=== PATIENT | male | born 1965 | race Caucasian/White ===

== ENCOUNTER 2022-04-01 20:31 | Emergency (ER) | payer OTHER, SELFPAY ==
[2022-04-01 20:54] VITALS: BP 111/73; PULSE 79; RESP 18; TEMP 36.6; O2SAT 98
[2022-04-01] MEDS: ACETAMINOPHEN 325 MG TABLET 650 MG PO (21:59)
[2022-04-01] MEDS: TETANUS,DIPHTHERIA,AC PERTUSSIS ADULT 0.5 ML (ADACEL) IM (22:00)
[2022-04-01] MEDS: LIDOCAINE HCL 2% PF INJ 5 ML VIAL 1 ML INFILTRATE (22:01)
[2022-04-01 23:28] VITALS: BP 130/74; PULSE 85; RESP 20; TEMP 36.7; O2SAT 95
--- NOTE | 2022-04-01 23:31 | ED.WOUNDLAC ---
HPI - Wound/Laceration General Chief Complaint: Wound/Laceration Stated Complaint: busted lip Time Seen by Provider: 04/01/22 20:33 Source: patient and RN notes reviewed Mode of arrival: ambulatory Limitations: no limitations History of Present Illness HPI narrative: lip laceration Onset (ago): hour(s) (1) Location: face Place: home Context: accidental Associated symptoms: pain Related Data Home Medications Medication Instructions Recorded Confirmed citalopram 40 mg tablet 1 tablet PO DAILY 04/01/22 04/11/22 cyclobenzaprine 10 mg tablet 1 tablet PO DAILY 04/01/22 04/11/22 hydroxyzine HCl 25 mg tablet 1 tablet PO DAILY 04/01/22 04/11/22 pantoprazole 40 mg tablet,delayed 1 tablet PO DAILY 04/01/22 04/11/22 release Allergies Allergy/AdvReac Type Severity Reaction Status Date / Time acetaminophen [From Percocet] Allergy Unknown Verified 04/11/22 20:35 amoxicillin [From Augmentin] Allergy Unknown Verified 04/11/22 20:35 clavulanic acid Allergy Unknown Verified 04/11/22 20:35 [From Augmentin] oxycodone [From Percocet] Allergy Unknown Verified 04/11/22 20:35 Review of Systems Review of Systems: All systems reviewed & are unremarkable except as noted in HPI and below Constitutional: Constitutional: Reports no additional constitutional complaints Eyes: Eyes: Reports no additional eye complaints ENT: Reports system reviewed and no additional complaints, except as documented Cardiovascular: Cardiovascular: Reports no additional cardiovascular complaints Respiratory: Respiratory: Reports no additional respiratory complaints Gastrointestinal: Gastrointestinal: Reports no additional gastrointestinal complaints Musculoskeletal: Musculoskeletal: Reports no additional musculoskeletal complaints Integumentary/Breasts: Skin/Breast: Reports system reviewed and no additional complaints, except as docu Neurologic: Reports system reviewed and no additional complaints, except as documented Psychiatric: Psychiatric: Reports no additional psychiatric complaints Endocrine: Endocrine: Reports no additional endocrine complaints Hematologic/Lymphatic: Hematologic/Lymphatic: Reports no additional hematologic/lymphatic complaints Allergic/Immunologic: Allergic/Immunologic: Reports no additional allergic/immunologic complaints PMFSH Past Medical History Medical History Lip laceration Exam Const: General: healthy appearing and no acute distress Nutritional Appearance: well nourished Orientation/consciousness: patient oriented x3 Limitations: no limitations HENMT: Head: normal to inspection Ears: external ears normal, TM's normal bilaterally and EAC's normal General nose exam: Normal external nose present and Normal nares present Face and sinus: normal facial exam and sinuses nontender Mouth: Yes Normal oral and palatal mucosa present, Yes lip normal (lip laceration 1.8 cm, well approximated) and Yes moist mucous membranes Teeth and gingiva: dentition normal Throat: posterior oropharynx normal Eyes: Conjunctivae: conjunctivae normal Pupils: Equal, round and reactive pupils present EOM: EOMs intact bilaterally Neck: Neck: normal visual inspection, no lymphadenopathy and no meningeal signs Chest: Chest palpation & inspection: normal inspection of the chest Resp: Effort & Inspection: normal respiratory effort Auscultation: clear to auscultation bilaterally Cardio: Rate: regular rate Rhythm: regular rhythm GI: GI Palp: Yes Soft to palpation and No Tenderness to palpation present (GI) Auscultation: normal bowel sounds : General: Yes bladder normal to palpation and Yes no CVA tenderness Back/Spine/Pelvis: Back: no CVA tenderness Skin: General skin exam: normal color Rashes: no rashes Wounds: no wounds Neuro: General: patient oriented x3, moves all extremities, no meningeal signs, no focal motor deficits and CN's II-XI intact bilaterally Cran
== END 2022-04-01 23:39 | disposition home or self-care (01) ==
PROVIDERS: Emergency Provider Emergency Medicine; PCP Family Medicine
DX: S01.511A Laceration without foreign body of lip, initial encounter (principal)
CPT/HCPCS: 12011; 90471; 90715; 99282; A9270

== ENCOUNTER 2022-04-11 20:10 | Emergency (ER) | payer OTHER, SELFPAY ==
[2022-04-11 20:25] VITALS: BP 115/75; PULSE 54; RESP 16; TEMP 36.5; O2SAT 98
--- NOTE | 2022-04-11 20:35 | PC.NURSE ---
three sutures removed from the middle of the left lower lip. pt tolerated well. no bleeding observed.
--- NOTE | 2022-04-11 20:40 | ED.GENADULT ---
HPI - General Adult General Chief complaint: Unspecified Stated complaint: stitches removal Time Seen by Provider: 04/11/22 20:14 Source: patient and RN notes reviewed Mode of arrival: ambulatory Limitations: no limitations History of Present Illness HPI narrative: left forehead laceration Onset (ago): hour(s) (1) Location: head Radiation: non-radiation Severity: mild Severity scale (1-10): 3 Quality: aching Pain Consistency: constant Relieving factors: none Exacerbating factors: none Treatments prior to arrival: none Related Data Home Medications Medication Instructions Recorded Confirmed citalopram 40 mg tablet 1 tablet PO DAILY 04/01/22 04/11/22 cyclobenzaprine 10 mg tablet 1 tablet PO DAILY 04/01/22 04/11/22 hydroxyzine HCl 25 mg tablet 1 tablet PO DAILY 04/01/22 04/11/22 pantoprazole 40 mg tablet,delayed 1 tablet PO DAILY 04/01/22 04/11/22 release Allergies Allergy/AdvReac Type Severity Reaction Status Date / Time acetaminophen [From Percocet] Allergy Unknown Verified 04/11/22 20:35 amoxicillin [From Augmentin] Allergy Unknown Verified 04/11/22 20:35 clavulanic acid Allergy Unknown Verified 04/11/22 20:35 [From Augmentin] oxycodone [From Percocet] Allergy Unknown Verified 04/11/22 20:35 Review of Systems Review of Systems: All systems reviewed & are unremarkable except as noted in HPI and below Constitutional: Constitutional: Reports no additional constitutional complaints Eyes: Eyes: Reports no additional eye complaints ENT: Reports system reviewed and no additional complaints, except as documented Cardiovascular: Cardiovascular: Reports no additional cardiovascular complaints Respiratory: Respiratory: Reports no additional respiratory complaints Gastrointestinal: Gastrointestinal: Reports no additional gastrointestinal complaints Musculoskeletal: Musculoskeletal: Reports no additional musculoskeletal complaints Integumentary/Breasts: Skin/Breast: Reports system reviewed and no additional complaints, except as docu Neurologic: Reports system reviewed and no additional complaints, except as documented Psychiatric: Psychiatric: Reports no additional psychiatric complaints Endocrine: Endocrine: Reports no additional endocrine complaints Hematologic/Lymphatic: Hematologic/Lymphatic: Reports no additional hematologic/lymphatic complaints Allergic/Immunologic: Allergic/Immunologic: Reports no additional allergic/immunologic complaints PMFSH Past Medical History Medical History Forehead laceration Lip laceration Exam Const: General: healthy appearing, no acute distress and other (left forehead superficial 1.8 cm laceration and 0.3 cm left lip laceration) Nutritional Appearance: well nourished Orientation/consciousness: patient oriented x3 Limitations: no limitations HENMT: Head: normal to inspection Ears: external ears normal, TM's normal bilaterally and EAC's normal General nose exam: Normal external nose present and Normal nares present Face and sinus: normal facial exam and sinuses nontender Mouth: Yes Normal oral and palatal mucosa present and Yes moist mucous membranes Teeth and gingiva: dentition normal Throat: posterior oropharynx normal Eyes: Conjunctivae: conjunctivae normal Pupils: Equal, round and reactive pupils present EOM: EOMs intact bilaterally Neck: Neck: normal visual inspection, no lymphadenopathy and no meningeal signs Chest: Chest palpation & inspection: normal inspection of the chest Resp: Effort & Inspection: normal respiratory effort Auscultation: clear to auscultation bilaterally Cardio: Rate: regular rate Rhythm: regular rhythm GI: GI Palp: Yes Soft to palpation and No Tenderness to palpation present (GI) Auscultation: normal bowel sounds : General: Yes bladder normal to palpation and Yes no CVA tenderness Back/Spine/Pelvis: Back: no CVA tenderness Skin: General skin exam:
[2022-04-11 20:59] VITALS: BP 127/83; PULSE 53; RESP 16; TEMP 36.5; O2SAT 99
== END 2022-04-11 21:01 | disposition home or self-care (01) ==
PROVIDERS: Emergency Provider Emergency Medicine; PCP Family Medicine
DX: S01.81XA Laceration without foreign body of other part of head, initial encounter (principal)
CPT/HCPCS: 99281

== ENCOUNTER 2025-01-05 07:27 | Outpatient (CLI) | payer BC, SELFPAY ==
--- NOTE | ~2025-01-05 | CT_ITS ---
EXAMINATION: CT abdomen pelvis wo/w con DATE: 01/05/2025 08:11 INDICATION: Gross hematuria. TECHNIQUE: Computed tomography (CT) of the abdomen and pelvis was performed without and with intraven ous contrast using a total of 130 mL Omnipaque-350 intravenous contrast with a double-bolus technique for simultaneous opacification of the renal parenchyma and renal collecting system. Automated exposu re control and iterative reconstruction technique were employed. The dose-length product was 546.70 m Gy-cm. COMPARISON: None FINDINGS: The visualized portions of the lung bases are clear without pneumonia or pleural effusion. The heart size is normal. No pericardial effusion. The liver, gallbladder, spleen, pancreas, adrenal glands, an d right kidney are normal. There are cysts in left kidney measuring up to 13 mm. There is no urolithi asis. Right ureter is well opacified and is normal. Left ureter is well opacified and is normal. The bladder is normal. There are surgical changes of the bowel. There are no dilated loops of bowel. Ther e are no pathologically enlarged lymph nodes. There is no free intraperitoneal fluid. 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 There is mild lumbar spondylosis. IMPRESSION: 1. No etiology for hematuria. Reviewed, dictated and finalized at location B.
--- OUTSIDE RECORDS SUMMARY | 2025-01-05 07:32 | XMS_ITS | Encounter Summary ---
Author Organization [facility] Address [address] [place] [id number] Care Team Providers Care Neonatal Doctor Name Role Phone Adan Washington MD Primary Care Provider Encounter Details Date Type Department Care Team (Late st Contact Info) Description 04/04/2019 Abstract SFL CONVERSION [address] [place] [id number] , Generic Conversion, Social History Tobacco Use Types Packs/Day Years Used Date Smoking Tobacco: Never Assessed Sex and Gender Information Value Date Recorded Sex Assigned at Not on file Legal Sex Male 10:04 PM MORTICIAN HELPER Gender Identity Not on file Sexual Orientation Not on file documented as of this encounter Plan of Treatment Not on file documented as of this encounter Visit Diagnoses Not on filedocumented in this encounter Additional Health Concerns Infection Onset Date Last Indicated Resolved Time COVID-19 Rule Out 03/15/2020 03/15/2020 03/22/2020 8:47 AM CDT COVID-19 Rule Out 01/05/2023 01/05/2023 01/05/2023 1:23 PM MORTICIAN HELPER documented as of this encounter Care Teams Neonatal Doctor Relationship Specialty Start Date End Date Adan Washington MD [address] [place] [id number] PCP - General FAMILY PRACTICE 03/15/20 documented as of this encounter
--- OUTSIDE RECORDS SUMMARY | 2025-01-05 07:32 | XMS_ITS | Clinical Summary ---
Author Organization [facility] Address [address] [place] [address] Care Team Providers Care Cleat Blanker Name Role Phone Adan Washington MD Primary Care Provider Allergies Active Allergy Reactions Criticality Noted Date Comments Amoxicillin-Pot Clavulanate GI Upset Low 03/16/20 20 Pt able to take penicillin product that does not have coating on tablet. Oxycodone-Acetaminophen Vomiting Medium 03/18/2020 Medications aspirin 81 MG chewable tablet Chew 1 tablet (81 mg total) by mouth daily. Active multi vitamin/mineral s tablet Take 1 tablet by mouth daily. Active citalopram (CELEXA) 40 MG tablet Take 1 tablet (40 mg total) by mouth daily. Active cyclobenzaprine (FLEXERIL) 10 MG tablet Take 1 tablet (10 mg total) by mouth 3 (three) times daily as needed for Muscle Spasms. Active hydrOXYzine (VISTARIL) 25 MG capsule Take 1 capsule (25 mg total) by mouth 3 (three) times daily as needed for Itching. Active clotrimazole-be tamethasone (LOTRISONE) cream Apply to affected area 2 times daily on 2 3 days after rash resolves. 45 g 2 Active nystatin (MYCOSTATIN) powder Apply topically 3 (three) times daily. Apply to the affected area 3 times daily until 3 days after rash resolves. 30 g 2 Active ENULOSE 10 GM/15ML solution Take 30 mLs (20 g total) by mouth 2 (two) times daily as needed. FOR CONSTIPATION Active pantoprazole EC (PROTONIX) 40 MG tablet Take 1 tablet (40 mg total) by mouth daily. Active clotrimazole (LOTRIMIN) 1 % creamIndication s:Candidal balanitis Apply topically 2 (two) times daily. 30 g Active Active Problems No known active problems Encounters Date Type Department Care Team Description 11/03/2024 12:33 PM BOTTOM PAINTER - 11/03/2024 1:55 PM BOTTOM PAINTER Emergency [facility] [address] [address] Blaise High MD Male Gu Discharge Disposition: Home or Self Care (Routine Discharge) 11/03/2024 Travel from Last 3 Months Family History Medical History Relation Comments Cancer Father Stroke Father No Known Problems Mother Relation Status Comments Father Mother Alive Social History Tobacco Use Types Packs/Day Years Used Date Smoking Tobacco: Every Day Cigarettes 0.3 10 Smokeless Tobacco: Never Tobacco Cessation:Ready to Q uit: Not Asked; Counseling Given: Not Answered Alcohol Use Standard Drinks/Week Comments Yes 0 (1 standard drink = 0.6 oz pur e alcohol) rare Sex and Gender Information Value Date Recorded Sex Assigned at Not on file Legal Sex Male 10:04 PM BOTTOM PAINTER Gender Identity Not on file Sexual Orientation Not on file Last Filed Vital Signs Vital Sign Reading Time Taken Comments Blood Pressure 136/73 11/03/2024 2:00 PM BOTTOM PAINTER Pulse 64 11/03/2024 1:55 PM BOTTOM PAINTER Temperature 36.7 C (98 F) 11/03/2024 12:39 PM BOTTOM PAINTER Respiratory Rate 16 11/03/2024 12:39 PM BOTTOM PAINTER Oxygen Saturation 98% 11/03/2024 2:00 PM BOTTOM PAINTER Inhaled Oxygen Concentration - - Weight 66.4 kg (146 lb 5 oz) 11/03/2024 12:39 PM BOTTOM PAINTER Height 185.4 cm (6' 1 ) 11/03/2024 12:39 PM BOTTOM PAINTER Body Mass Index 19.3 11/03/2024 12:39 PM BOTTOM PAINTER Plan of Treatment Health Maintenance Due Date Last Done Comments Annual Physical 1969 Pneumococcal Vaccine: Pediatrics (0 to 5 Years) and At-Risk Patients (6 to 64 Years) (1 of 2 - PCV) 1972 Hepatitis C 1984 Hepatitis B Vaccines (1 of 3 - 19+ 3-dose series) 1985 Zoster Vaccines (1 of 2) 2016 COVID-19 Vaccine ( season) 2024 02/16/2022, 05/11/2021, 04/20/2021 Influenza Adult (#1) 2024 08/04/2019 DTaP, Tdap and Td Vaccines (3 - Td or Tdap) 04/01/2032 04/01/2022, 03/13/2018 Colorectal Cancer Screening Colonoscopy (10 Years) 12/11/2032 12/11/2022, 12/11/2022, 03/18/2020, Additional history exists Meningococcal B Vaccine Aged Out No l onger eligible based on patient's age to complete this topic Meningococcal Vaccine Aged Out No lucero yary eligible based on patient's age to complete this topic RSV Immunizations Under 20 Months Aged Out No longer eligible based on patient's age to complete this topic Procedures Procedure Name Priority Date/Time Associated Diagnosis Comments CT ABD+PEL WO CON STAT 11/03/2024 1:2 5 PM BOTTOM PAINTER HC URINALYSIS AUTO W/MICRO STAT 11/03/2024 1:17 PM BOTTOM PAINTER BASIC METABOLIC PANEL STAT 11/03/2024 1:14 PM BOTTOM PAINTER CBC W/DIFF AUTOMATED STAT 11/03/2024 1:14 PM BOTTOM PAINTER COLONOSCOPY 12/11/2022 6:46 AM BOTTOM PAINTER from Last 3 Months or Most Recently Relevant to Health Maintenance Results * CT ABD+PEL WO CON (11/03/2024 1:25 PM BOTTOM PAINTER) Anatomical Region Laterality Modality Abdomen Computed Tomogra phy 11/03/2024 1:28 PM BOTTOM PAINTER Impressions 11/03/2024 1:37 PM BOTTOM PAINTER IMPRESSION: No acute intra-abdominal or intrapelvic process identified. No source of the patient's symptoms identified. Ordered By: BLAISE HIGH Interpreted By: Stan Sousa MD, 11/03/2024 1:28 PM Narrative 11/03/2024 1:37 PM BOTTOM PAINTER [address] [place] [address] Examination: CT of the abdomen and pelvis without contrast. Exam time: 1326 hours. Clinical history: Hematuria. Penile discomfort. Normal WBC count. Prior subtotal colectomy. Comparison: 11/03/2022 (contrast-enhanced). Technique: Spiral scanning was performed through the abdomen and pelvis without contrast. Sagittal and coronal reconstructions were performed from the data set. A dose lowering technique was used for this procedure, which may include, but is not limited to, dose reduction techniques, automated exposure control, the use of iterative reconstruction and ALARA/Image Gently techniques. Findings: Allowing for minor respiratory motion, the lung bases are clear. No pleural effusions are seen. Small left renal cysts are again noted and require no further workup or surveillance. The liver, spleen, gallbladder, pancreas, adrenals and kidneys are otherwise unremarkable for the noncontrast technique. The urinary bladder is nearly empty. Subtotal colectomy with ileorectal anastomosis again evident. There is no ascites, lymphadenopathy or bowel distention. The caliber of the abdominal aorta is normal. Procedure Note Stan Sousa MD - 11/03/[address] [place] [address] Examination: CT of the abdomen and pelvis without contrast. Exam time: 1326 hours. Clinical history: Hematuria. Penile discomfort. Normal WBC count. Priorsubtotal colectomy. Comparison: 11/03/2022 (contrast-enhanced). Technique: Spiral scanning was performed through the abdomen and pelviswithout contrast. Sagittal and coronal reconstructions were performed fromthe data set. A dose lowering technique was used for this procedure,which may include, but is not limited to, dose reduction techniques,automated exposure control, the use of iterative reconstruction andALARA/Image Gently techniques. Findings: Allowing for minor respiratory motion, the lung bases are clear.No pleural effusions are seen. Small left renal cysts are again noted andrequire no further workup or surveillance. The liver, spleen, gallbladder,pancreas, adrenals and kidneys are otherwise unremarkable for thenoncontrast technique. The urinary bladder is nearly empty. Subtotalcolectomy with ileorectal anastomosis again evident. There is no ascites,lymphadenopathy or bowel distention. The caliber of the abdominal aorta isnormal. IMPRESSION: No acute intra-abdominal or intrapelvic process identified. No source ofthe patient's symptoms identified. Ordered By: BLAISE HIGH Interpreted By: Stan Sousa MD, 11/03/2024 1:28 PM Blaise High MD CT Final Result * (ABNORMAL) URINALYSIS (11/03/2024 1:17 PM BOTTOM PAINTER) COLOR (U) YELLOW 11/03/2024 1:32 PM BOTTOM PAINTER [facility] TRANSPARENCY CLEAR 11/03/2024 1:32 PM BOTTOM PAINTER [facility] SPECIFIC GRAVITY (U) 1.010 1.000 - 1.025 11/03/2024 1:32 PM BOTTOM PAINTER [facility] U PH 5.5 5.0 - 8.0 11/03/2024 1:32 PM BOTTOM PAINTER [facility] LEUKOCYTES (U) NEGATIVE NEGATIVE 11/03/2024 1:32 PM BOTTOM PAINTER [facility] NITRITES NEGATIVE NEGATIVE 11/03/2024 1:32 PM [facility] PROTEIN RANDOM (U) NEGATIVE NEGATIVE 11/03/2024 1:32 PM [facility] GLUCOSE (U) NEGATIVE NEGATIVE 11/03/2024 1:32 PM BOTTOM PAINTER [facility] KETONES MG/DL (U) NEGATIVE NEGATIVE 11/03/2024 1:32 PM BOTTOM PAINTER [facility] UROBILINOGEN 0.2 <1.0 EU/DL 11/03/2024 1:32 PM BOTTOM PAINTER [facility] BILIRUBIN (U) NEGATIVE NEGATIVE 11/03/2024 1:32 PM BOTTOM PAINTER [facility] BLOOD (U) 2+(A) NEGATIVE 11/03/2024 1:32 PM BOTTOM PAINTER [facility] WBC/HPF 0-5 0 - 5 /HPF 11/03/2024 1:32 PM BOTTOM PAINTER [facility] RBC/HPF 20-50(A) 0 - 5 /HPF 11/03/2024 1:32 PM BOTTOM PAINTER [facility] BACTERIA (U) TRACE /HPF 11/03/2024 1:32 PM BOTTOM PAINTER [facility] URINE SPECIMEN OBTAINED BY CLEAN CATCH PROCEDURE / Unknown 11/03/2024 1:17 PM BOTTOM PAINTER Blaise High MD URINE ORDERABLES Final Result [facility] [address] [place] [address], * (ABNORMAL) BASIC METABOLIC PANEL (11/03/2024 1:14 PM BOTTOM PAINTER) SODIUM S/P/B 133(L) 136 - 145 MMOL/L 11/03/2024 1:34 PM [facility] POTASSIUM S/P/B 4.2 3.5 - 5.1 MMOL/L 11/03/2024 1:34 PM [facility] CHLORIDE S/P/B 98 98 - 107 MMOL/L 11/03/2024 1:34 PM [facility] CO2 24.6 21.0 - 32.0 MMOL/L 11/03/2024 1:34 PM [facility] GLUCOSE 93 70 - 99 MG/DL 11/03/2024 1:34 PM [facility] Comment: FASTING GLUCOSE 100 TO 125 MG/DL IS CONSISTENT WITH IMPAIRED FASTING GLUCOSE. FASTING GLUCOSE >125 MG/DL IS CONSISTENT WITH DIABETES. RANDOM GLUCOSE >200 MG/DL WITH HYPERGLYCEMIC SYMPTOMS IS CONSISTENT WITH DIABETES. PER ADA GUIDELINES BUN 15 6 - 24 MG/DL 11/03/2024 1:34 PM [facility] CREATININE S/P/B 1.17 0.70 - 1.30 MG/DL 11/03/2024 1:34 PM [facility] CALCIUM S/P/B 9.0 8.4 - 10.5 MG/DL 11/03/2024 1:34 PM BOTTOM PAINTER [facility] ANION GAP 10.4 5.0 - 15.0 MMOL/L 11/03/2024 1:34 PM BOTTOM PAINTER [facility] OSMOLALITY (CALC) 277 MOSM/KG 025 1:34 PM [facility] Comment:REFERENCE RANGE NOT ESTABLISHED GFR ESTIMATE 73(L) >89 ML/MIN/1. 73 M2 11/03/2024 1:34 PM BOTTOM PAINTER [facility] GFR NOTES GFR REFERENCE S: 11/03/2024 1:34 PM [facility] Comment: THE ESTIMATED GFR IS CALCULATED USING THE 2020 CKD-EPI EQUATION. THE FOLLOWING CATEGORIES FOR GRADING RENAL FUNCTION ARE RECOMMENDED BY THE INTERNATIONAL SOCIETY OF NEPHROLOGY (KDIGO 2012 CLINICAL PRACTICE GUIDELINE). G1,NORMAL OR HIGH: >89 ml/min/1.73 m2 G2,MILDLY DECREASED: 60-89 ml/min/1.73 m2 G3A,MILDLY TO MODERATELY DECREASED: 45-59 ml/min/1.73 m2 G3B,MODERATELY TO SEVERELY DECREASED: 30-44 ml/min/1.73 m2 G4,SEVERELY DECREASED: 15-29 ml/min/1.73 m2 G5,KIDNEY FAILURE: <15 ml/min/1.73 m2 11/03/2024 1:14 PM BOTTOM PAINTER Blaise High MD LABORATORY Final Result [facility] [address] [place] [address], * (ABNORMAL) CBC W/DIFF AUTOMATED (11/03/2024 1:14 PM BOTTOM PAINTER) WBC 8.42 4.00 - 10.80 x10'3/uL 11/03/2024 1:28 PM BOTTOM PAINTER [facility] RBC 4.85 4.50 - 6.10 x10'6/uL 11/03/2024 1:28 PM [facility] HGB 15.1 13.0 - 18.0 G/DL 11/03/2024 1:28 PM BOTTOM PAINTER [facility] HCT 44.7 37.0 - 52.0 % 11/03/2024 1:28 PM BOTTOM PAINTER [facility] MCV 92.2 78.0 - 100.0 FL 11/03/2024 1:28 PM [facility] MCH 31.1(H) 27.0 - 31.0 PG 11/03/2024 1:28 PM [facility] MCHC 33.8 33.0 - 36.0 G/DL 11/03/2024 1:28 PM [facility] RDW 12.8 11.5 - 14.5 % 11/03/2024 1:28 PM [facility] PLT 240 150 - 350 x10'3/uL 11/03/2024 1:28 PM [facility] MPV 10.2 7.4 - 10.4 FL 11/03/2024 1:28 PM [facility] CBC COMMENT NORMAL REFERENCE RANGE NOT ESTABLISHED FOR THE PROPORTIONAL LEUKOCYTE DIFFERENTIAL. 11/03/2024 1:28 PM [facility] NEUTROPHILS % 60.0 % 11/03/2024 1:28 PM [facility] LYMPHOCYTES % 30.4 % 11/03/2024 1:28 PM [facility] MONOCYTES % 5.9 % 11/03/2024 1:28 PM [facility] EOSINOPHILS % 2.4 % 11/03/2024 1:28 PM [facility] BASOPHILS % 1.1 % 11/03/2024 1:28 PM [facility] IMMATURE GRANS % 0.2 % 11/03/19 1:28 PM [facility] NRBC % 0.0 % 11/03/2024 1:28 PM [facility] ABS. NEUTROPHILS 5.05 1.60 - 8.30 x10'3/uL 11/03/2024 1:28 PM [facility] ABS. LYMPHOCYTES 2.56 0.80 - 4.70 x10'3/uL 11/03/2024 1:28 PM [facility] ABS. MONOCYTES 0.50 0.00 - 1.50 x10'3/uL 11/03/2024 1:28 PM BOTTOM PAINTER [facility] ABS. EOSINOPHILS 0.20 0.00 - 0.40 x10'3/uL 11/03/2024 1:28 PM BOTTOM PAINTER [facility] ABS. BASOPHILS 0.09 0.00 - 0.20 x10'3/uL 11/03/2024 1:28 PM BOTTOM PAINTER [facility] ABS. IMMATURE GRANULOCYTES 0.02 0.00 - 0.03 x10'3/uL 11/03/2024 1:28 PM BOTTOM PAINTER [facility] ABS. NUCLEATED RBC'S 0.00 0.00 - 0.01 x10'3/uL 11/03/2024 1:28 PM BOTTOM PAINTER [facility] 11/03/2024 1:14 PM BOTTOM PAINTER Blaise High MD LABORATORY Final Result Performing Organization Address City/State[facility] Co de Phone Number [facility] [address] [place] [phone], * Colonoscopy (12/11/2022 6:46 AM BOTTOM PAINTER) Soren Luz MD GI PROCEDURE ORDERABLES Final Result from Last 3 Months or Most Recently Relevant to Health Maintenance Insurance [facility] Care Teams Cleat Blanker Relationship Specialty Start Date End Date Adan Washington MD [address] [facility] [place] [address] PCP - General FAMILY PRACTICE 03/15/20
[2025-01-05 07:57] LABS: Estimated Glomerular Filt Rate 57
== END 2025-01-05 07:28 | disposition home or self-care (01) ==
PROVIDERS: PCP Family Medicine; Visit Provider Urology
DX: R13.0 Aphagia (principal)
CPT/HCPCS: 74178; Q9967

== ENCOUNTER 2025-01-11 11:14 | Outpatient (CLI) | payer BC, SELFPAY ==
[2025-01-11 12:48] LABS: Basophils Absolute Auto 0.1 K/mm3 (0.0-0.1); Basophils Percent Auto 0.7 % (0.2-1.2); Eosinophils Absolute Auto 0.3 K/mm3 (0-0.3); Eosinophils Percent Auto 3.4 % (0-4.4); Hematocrit 47.2 % (42.0-52.0); Hemoglobin 15.6 g/dL (14.0-18.0); Immature Granulocyte Absolute 0.03 K/mm3 (0.00-0.031); Immature Granulocyte Percent A 0.4 % (0-0.5); Lymphocytes Absolute Auto 2.34 K/mm3 (0.9-3.2); Lymphocytes Percent Auto 30.5 % (18.3-44.2); Mean Corpuscular HGB Conc 33.1 g/dl (32-36); Mean Corpuscular Hemoglobin 30.6 pg (26-34); Mean Corpuscular Volume 92.7 fl (80-100); Mean Platelet Volume 10.9 fl (7.4-10.4); Monocytes Absolute Auto 0.6 K/mm3 (0.1-0.6); Monocytes Percent Auto 8.3 % (2.6-8.5); Neutrophils Absolute Auto 4.4 K/mm3 (1.3-6.7); Neutrophils Percent Auto 56.7 % (45.5-73.1); Platelet Count Result 236 k/mm3 (150-375); Red Blood Count 5.09 M/mm3 (4.6-6.20); Red Cell Distribution Width 12.9 % (11.5-14.5); White Blood Count 7.7 K/mm3 (4.5-10.0)
[2025-01-11 12:59] LABS: Anion Gap 11 mmol/L (4-12); Blood Urea Nitrogen 10 mg/dL (9-20); Calcium 9.5 mg/dL (8.4-10.2); Carbon Dioxide 25 mmol/L (22-30); Chloride 100 mmol/L (98-107); Estimated Glomerular Filt Rate > 60; Glucose 98 mg/dL (65-110); Potassium 4.2 mmol/L (3.4-5.0); Sodium 136 mmol/L (137-145)
[2025-01-11 13:51] LABS: INR 0.9; Partial Thromboplastin Time 31.6 Seconds (22.3-36.8); Prothrombin Time 12.2 Seconds (11.1-14.7)
--- OUTSIDE RECORDS SUMMARY | 2025-01-11 13:52 | XMS_ITS | Encounter Summary ---
Author Organization [facility] Address [address] [place] [address] Care Team Providers Care Miner Assistant Name Role Phone Adan Washington MD Primary Care Provider Encounter Details Date Type Department Care Team (Late st Contact Info) Description 04/04/2019 Abstract SFL CONVERSION [address] [place] [address] , Generic Conversion, Social History Tobacco Use Types Packs/Day Years Used Date Smoking Tobacco: Never Assessed Sex and Gender Information Value Date Recorded Sex Assigned at Not on file Legal Sex Male 10:04 PM CASEWORK SUPERVISOR Gender Identity Not on file Sexual Orientation Not on file documented as of this encounter Plan of Treatment Not on file documented as of this encounter Visit Diagnoses Not on filedocumented in this encounter Additional Health Concerns Infection Onset Date Last Indicated Resolved Time COVID-19 Rule Out 03/15/2020 03/15/2020 03/22/2020 8:47 AM CDT COVID-19 Rule Out 01/05/2023 01/05/2023 01/05/2023 1:23 PM CASEWORK SUPERVISOR documented as of this encounter Care Teams Miner Assistant Relationship Specialty Start Date End Date Adan Washington MD [address] [place] [id number] PCP - General FAMILY PRACTICE 03/15/20 documented as of this encounter
--- OUTSIDE RECORDS SUMMARY | 2025-01-11 13:52 | XMS_ITS | Clinical Summary ---
Author Organization [facility] Address [address] [place] [address] Care Team Providers Care Cdl Team Truck Driver Name Role Phone Adan Washington MD Primary Care Provider [phone] Allergies Active Allergy Reactions Criticality Noted Date [...] Department Care Team Description 11/03/2024 12:33 PM VAMP MAKER - 11/03/2024 1:55 PM VAMP MAKER Emergency [facility] [address] [facility] [place] [address] Blaise High MD Male Gu Discharge Disposition: [...] on file Legal Sex Male 10:04 PM VAMP MAKER Gender Identity Not on file Sexual Orientation Not on file Last Filed Vital Signs Vital Sign Reading Time Taken Comments Blood Pressure 136/73 11/03/2024 2:00 PM VAMP MAKER Pulse 64 11/03/2024 1:55 PM VAMP MAKER Temperature 36.7 C (98 F) 11/03/2024 12:39 PM VAMP MAKER Respiratory Rate 16 11/03/2024 12:39 PM VAMP MAKER Oxygen Saturation 98% 11/03/2024 2:00 PM VAMP MAKER Inhaled Oxygen Concentration - - Weight 66.4 kg (146 lb 5 oz) 11/03/2024 12:39 PM VAMP MAKER Height 185.4 cm (6' 1 ) 11/03/2024 12:39 PM VAMP MAKER Body Mass Index 19.3 11/03/2024 12:39 PM VAMP MAKER Plan of Treatment Health Maintenance Due Date [...] WO CON STAT 11/03/2024 1:2 5 PM VAMP MAKER HC URINALYSIS AUTO W/MICRO STAT 11/03/2024 1:17 PM VAMP MAKER BASIC METABOLIC PANEL STAT 11/03/2024 1:14 PM VAMP MAKER CBC W/DIFF AUTOMATED STAT 11/03/2024 1:14 PM VAMP MAKER COLONOSCOPY 12/11/2022 6:46 AM VAMP MAKER from Last 3 Months or Most Recently Relevant to Health Maintenance Results * CT ABD+PEL WO CON (11/03/2024 1:25 PM VAMP MAKER) Anatomical Region Laterality Modality Abdomen Computed Tomogra phy 11/03/2024 1:28 PM VAMP MAKER Impressions 11/03/2024 1:37 PM VAMP MAKER IMPRESSION: No acute intra-abdominal or intrapelvic process identified. No source of the patient's symptoms identified. Ordered By: BLAISE HIGH Interpreted By: Stan Sousa MD, 11/03/2024 1:28 PM Narrative 11/03/2024 1:37 PM VAMP MAKER [address] [place] [address] Examination: CT of the abdomen and pelvis [...] Procedure Note Stan Sousa MD - 11/03/[address] [place] [address] Examination: CT of the abdomen and pelvis [...] Result * (ABNORMAL) URINALYSIS (11/03/2024 1:17 PM VAMP MAKER) COLOR (U) YELLOW 11/03/2024 1:32 PM VAMP MAKER [facility] TRANSPARENCY CLEAR 11/03/2024 1:32 PM VAMP MAKER [facility] SPECIFIC GRAVITY (U) 1.010 1.000 - 1.025 11/03/2024 1:32 PM VAMP MAKER [facility] U PH 5.5 5.0 - 8.0 11/03/2024 1:32 PM VAMP MAKER [facility] LEUKOCYTES (U) NEGATIVE NEGATIVE 11/03/2024 1:32 PM VAMP MAKER [facility] NITRITES NEGATIVE NEGATIVE 11/03/2024 1:32 PM [facility] PROTEIN RANDOM (U) NEGATIVE NEGATIVE 11/03/2024 1:32 PM [facility] GLUCOSE (U) NEGATIVE NEGATIVE 11/03/2024 1:32 PM VAMP MAKER [facility] KETONES MG/DL (U) NEGATIVE NEGATIVE 11/03/2024 1:32 PM VAMP MAKER [facility] UROBILINOGEN 0.2 <1.0 EU/DL 11/03/2024 1:32 PM VAMP MAKER [facility] BILIRUBIN (U) NEGATIVE NEGATIVE 11/03/2024 1:32 PM VAMP MAKER [facility] BLOOD (U) 2+(A) NEGATIVE 11/03/2024 1:32 PM VAMP MAKER [facility] WBC/HPF 0-5 0 - 5 /HPF 11/03/2024 1:32 PM VAMP MAKER [facility] RBC/HPF 20-50(A) 0 - 5 /HPF 11/03/2024 1:32 PM VAMP MAKER [facility] BACTERIA (U) TRACE /HPF 11/03/2024 1:32 PM VAMP MAKER [facility] URINE SPECIMEN OBTAINED BY CLEAN CATCH PROCEDURE / Unknown 11/03/2024 1:17 PM VAMP MAKER Blaise High MD URINE ORDERABLES Final Result [facility] [address] [place] [address], * (ABNORMAL) BASIC METABOLIC PANEL (11/03/2024 1:14 PM VAMP MAKER) SODIUM S/P/B 133(L) 136 - 145 MMOL/L 11/03/2024 1:34 PM [facility] POTASSIUM S/P/B 4.2 3.5 - 5.1 MMOL/L 11/03/2024 1:34 PM [facility] CHLORIDE S/P/B 98 98 - 107 MMOL/L 11/03/2024 1:34 PM [facility] CO2 24.6 21.0 - 32.0 MMOL/L 11/03/2024 1:34 PM [facility] GLUCOSE 93 70 - 99 MG/DL 11/03/2024 1:34 PM [facility] Comment: FASTING GLUCOSE 100 TO 125 MG/DL IS CONSISTENT WITH IMPAIRED FASTING GLUCOSE. FASTING GLUCOSE >125 MG/DL IS CONSISTENT WITH DIABETES. RANDOM GLUCOSE >200 MG/DL WITH HYPERGLYCEMIC SYMPTOMS IS CONSISTENT WITH DIABETES. PER ADA GUIDELINES BUN 15 6 - 24 MG/DL 11/03/2024 1:34 PM [facility] CREATININE S/P/B 1.17 0.70 - 1.30 MG/DL 11/03/2024 1:34 PM [facility] CALCIUM S/P/B 9.0 8.4 - 10.5 MG/DL 11/03/2024 1:34 PM VAMP MAKER [facility] ANION GAP 10.4 5.0 - 15.0 MMOL/L 11/03/2024 1:34 PM VAMP MAKER [facility] OSMOLALITY (CALC) 277 MOSM/KG 025 1:34 PM [facility] Comment:REFERENCE RANGE NOT ESTABLISHED GFR ESTIMATE 73(L) >89 ML/MIN/1. 73 M2 11/03/2024 1:34 PM VAMP MAKER [facility] GFR NOTES GFR REFERENCE S: 11/03/2024 1:34 PM [facility] Comment: THE ESTIMATED GFR IS CALCULATED [...] FAILURE: <15 ml/min/1.73 m2 11/03/2024 1:14 PM VAMP MAKER Blaise High MD LABORATORY Final Result [facility] [address] [place] [address], * (ABNORMAL) CBC W/DIFF AUTOMATED (11/03/2024 1:14 PM VAMP MAKER) WBC 8.42 4.00 - 10.80 x10'3/uL 11/03/2024 1:28 PM VAMP MAKER [facility] RBC 4.85 4.50 - 6.10 x10'6/uL 11/03/2024 1:28 PM [facility] HGB 15.1 13.0 - 18.0 G/DL 11/03/2024 1:28 PM VAMP MAKER [facility] HCT 44.7 37.0 - 52.0 % 11/03/2024 1:28 PM VAMP MAKER [facility] MCV 92.2 78.0 - 100.0 FL 11/03/2024 1:28 PM [facility] MCH 31.1(H) 27.0 - 31.0 PG 11/03/2024 1:28 PM [facility] MCHC 33.8 33.0 - 36.0 G/DL 11/03/2024 1:28 PM [facility] RDW 12.8 11.5 - 14.5 % 11/03/2024 1:28 PM [facility] PLT 240 150 - 350 x10'3/uL 11/03/2024 1:28 PM [facility] MPV 10.2 7.4 - 10.4 FL 11/03/2024 1:28 PM [facility] CBC COMMENT NORMAL REFERENCE RANGE NOT ESTABLISHED FOR THE PROPORTIONAL LEUKOCYTE DIFFERENTIAL. 11/03/2024 1:28 PM [facility] NEUTROPHILS % 60.0 % 11/03/2024 1:28 PM [facility] LYMPHOCYTES % 30.4 % 11/03/2024 1:28 PM [facility] MONOCYTES % 5.9 % 11/03/2024 1:28 PM [facility] EOSINOPHILS % 2.4 % 11/03/2024 1:28 PM [facility] BASOPHILS % 1.1 % 11/03/2024 1:28 PM [facility] IMMATURE GRANS % 0.2 % 11/03/19 1:28 PM [facility] NRBC % 0.0 % 11/03/2024 1:28 PM [facility] ABS. NEUTROPHILS 5.05 1.60 - 8.30 x10'3/uL 11/03/2024 1:28 PM [facility] ABS. LYMPHOCYTES 2.56 0.80 - 4.70 x10'3/uL 11/03/2024 1:28 PM [facility] ABS. MONOCYTES 0.50 0.00 - 1.50 x10'3/uL 11/03/2024 1:28 PM VAMP MAKER [facility] ABS. EOSINOPHILS 0.20 0.00 - 0.40 x10'3/uL 11/03/2024 1:28 PM VAMP MAKER [facility] ABS. BASOPHILS 0.09 0.00 - 0.20 x10'3/uL 11/03/2024 1:28 PM VAMP MAKER [facility] ABS. IMMATURE GRANULOCYTES 0.02 0.00 - 0.03 x10'3/uL 11/03/2024 1:28 PM VAMP MAKER [facility] ABS. NUCLEATED RBC'S 0.00 0.00 - 0.01 x10'3/uL 11/03/2024 1:28 PM VAMP MAKER [facility] 11/03/2024 1:14 PM VAMP MAKER Blaise High MD LABORATORY Final Result Performing Organization Address City/State/[facility] [[email or web address]] Co de Phone Number [facility] [address] [employer] [place] [id number], * Colonoscopy (12/11/2022 6:46 AM VAMP MAKER) Soren Luz MD GI PROCEDURE ORDERABLES Final Result from Last 3 Months or Most Recently Relevant to Health Maintenance Insurance [facility] Care Teams Cdl Team Truck Driver Relationship Specialty Start Date End Date Adan Washington MD [address] [address] PCP - General FAMILY PRACTICE 03/15/20
== END 2025-01-11 11:15 | disposition home or self-care (01) ==
PROVIDERS: PCP Family Medicine; Visit Provider Urology
DX: Z01.818 Encounter for other preprocedural examination (principal); N32.89 Other specified disorders of bladder
CPT/HCPCS: 36415; 80048; 85025; 85610; 85730; 87086

== ENCOUNTER 2025-01-19 00:49 | Day surgery (SDC) | payer BC, SELFPAY ==
[2025-01-08 12:24] VITALS: BMI 18.8
--- NOTE | 2025-01-08 12:25 | PC.NURSE ---
Report to the Outpatient Waiting Room, entrance under the green pavilion located off [facility], at time _1000_ on date _[id number]_. Planned Procedure Time: _1200_.? Time changes happen often and if your time is changed the preop area will call you the afternoon before. - You and your visitor will be asked to self-screen and do not enter if you have any COVID symptoms. Please call surgeon if you need to reschedule. - A mask is optional within the hospital at this time. Patients may have clear liquids (water, carbonated beverages, clear teas, apple juice) until 3 hours prior to surgery with a maximum of 20 ounces. - No food from midnight until time of surgery and no smoking, or chewing tobacco (or any form of nicotine). No chewing gum, candy or mints. Take only the following medications with a SIP of water on the morning of surgery: ___Citalopram and if needed hydroxyzine DO NOT STOP ANY OF YOUR OTHER PRESCRIPTION MEDICATIONS PRIOR TO SURGERY EXCEPT THE FOLLOWING Hold all vitamins and supplements for 3 days per anesthesiologist. Medications to discontinue per physician Date to take last dose Please no make-up, nail arabic, hairspray, perfume, deodorant, or body powder the day of surgery.? No jewelry (including any body piercings) or valuables the day of surgery, leave them at home.? Please take a shower or bath the night before, or the morning of, surgery with an antibacterial soap.? Wear comfortable, loose fitting clothing.? - Jewelry must be removed prior to entering the operating room.? Rings and piercings that are not removed may be cut off. - The hospital will not accept responsibility for valuables.? - Please leave all valuables, including medications, at home the day of surgery. If you are going home after surgery, a licensed local company tanker driver must drive you home.? - NO public transportation without another adult if you receive anesthesia. - We recommend that an adult stay with you for 24 hours following discharge. - We also recommend that you do not drive, make important decision, drink alcoholic beverages, or take any drugs that were not prescribed by your health care provider for at least 24 hours after your discharge time. Follow any additional instructions given to you from your surgeon. Telephone instructions given to __Larry__and asked if any additional questions and then verbalized understanding. Patient advised to call surgeon office or pre surgery nurse liaison [phone] if any additional questions.
[2025-01-19] VITALS (11 sets, daily range): BP systolic 111–162; BP diastolic 62–97; PULSE 62–86; RESP 12–20; TEMP 36.2–36.6; O2SAT 93–100; BMI 19.6
--- NOTE | ~2025-01-19 | XR_ITS ---
EXAMINATION: XR retrograde pyelo w/stent LT DATE: 01/19/2025 09:15 INDICATION: Gross hematuria. TECHNIQUE: 3 intraoperative fluoroscopic views of the abdomen and pelvis were obtained. I was not pre sent. Fluoroscopy exposure time was 15 seconds. COMPARISON: CT 01/05/2025 FINDINGS: The left-sided retrograde pyelogram is unremarkable. There is a left internal ureteral sten t in expected position. IMPRESSION: 1. Left internal ureteral stent in expected position. Reviewed, dictated and finalized at location A.
--- OUTSIDE RECORDS SUMMARY | 2025-01-19 00:52 | XMS_ITS | Encounter Summary ---
Author Organization [facility] Address [address] [place] [id number] Care Team Providers Care Track Laborer Name Role Phone Adan Washington MD Primary Care Provider Encounter Details Date Type Department Care Team (Late st Contact Info) Description 04/04/2019 Abstract SFL CONVERSION [address] [place] [address] , Generic Conversion, Social History Tobacco Use Types Packs/Day Years Used Date Smoking Tobacco: Never Assessed Sex and Gender Information Value Date Recorded Sex Assigned at Not on file Legal Sex Male 10:04 PM ANTHROPOLOGY FACULTY MEMBER Gender Identity Not on file Sexual Orientation Not on file documented as of this encounter Plan of Treatment Not on file documented as of this encounter Visit Diagnoses Not on filedocumented in this encounter Additional Health Concerns Infection Onset Date Last Indicated Resolved Time COVID-19 Rule Out 03/15/2020 03/15/2020 03/22/2020 8:47 AM CDT COVID-19 Rule Out 01/05/2023 01/05/2023 01/05/2023 1:23 PM ANTHROPOLOGY FACULTY MEMBER documented as of this encounter Care Teams Track Laborer Relationship Specialty Start Date End Date Adan Washington MD [address] [place] [phone] PCP - General FAMILY PRACTICE 03/15/20 documented as of this encounter
--- OUTSIDE RECORDS SUMMARY | 2025-01-19 00:52 | XMS_ITS | Clinical Summary ---
Author Organization [facility] Address [address] [place] [address] Care Team Providers Care Ear Machine Operator Name Role Phone Adan Washington MD Primary [...] Department Care Team Description 11/03/2024 12:33 PM SPRAY MACHINE LOADER - 11/03/2024 1:55 PM SPRAY MACHINE LOADER Emergency [facility] [address] [facility] [place] [address] Blaise High MD Male Gu Discharge Disposition: [...] on file Legal Sex Male 10:04 PM SPRAY MACHINE LOADER Gender Identity Not on file Sexual Orientation Not on file Last Filed Vital Signs Vital Sign Reading Time Taken Comments Blood Pressure 136/73 11/03/2024 2:00 PM SPRAY MACHINE LOADER Pulse 64 11/03/2024 1:55 PM SPRAY MACHINE LOADER Temperature 36.7 C (98 F) 11/03/2024 12:39 PM SPRAY MACHINE LOADER Respiratory Rate 16 11/03/2024 12:39 PM SPRAY MACHINE LOADER Oxygen Saturation 98% 11/03/2024 2:00 PM SPRAY MACHINE LOADER Inhaled Oxygen Concentration - - Weight 66.4 kg (146 lb 5 oz) 11/03/2024 12:39 PM SPRAY MACHINE LOADER Height 185.4 cm (6' 1 ) 11/03/2024 12:39 PM SPRAY MACHINE LOADER Body Mass Index 19.3 11/03/2024 12:39 PM SPRAY MACHINE LOADER Plan of Treatment Health Maintenance Due Date [...] WO CON STAT 11/03/2024 1:2 5 PM SPRAY MACHINE LOADER HC URINALYSIS AUTO W/MICRO STAT 11/03/2024 1:17 PM SPRAY MACHINE LOADER BASIC METABOLIC PANEL STAT 11/03/2024 1:14 PM SPRAY MACHINE LOADER CBC W/DIFF AUTOMATED STAT 11/03/2024 1:14 PM SPRAY MACHINE LOADER COLONOSCOPY 12/11/2022 6:46 AM SPRAY MACHINE LOADER from Last 3 Months or Most Recently Relevant to Health Maintenance Results * CT ABD+PEL WO CON (11/03/2024 1:25 PM SPRAY MACHINE LOADER) Anatomical Region Laterality Modality Abdomen Computed Tomogra phy 11/03/2024 1:28 PM SPRAY MACHINE LOADER Impressions 11/03/2024 1:37 PM SPRAY MACHINE LOADER IMPRESSION: No acute intra-abdominal or intrapelvic process identified. No source of the patient's symptoms identified. Ordered By: BLAISE HIGH Interpreted By: Stan Sousa MD, 11/03/2024 1:28 PM Narrative 11/03/2024 1:37 PM SPRAY MACHINE LOADER [address] [place] [address] Examination: CT of the abdomen and pelvis [...] Procedure Note Stan Sousa MD - 11/03/[address] [place] [address] Examination: CT of the abdomen and pelvis [...] Result * (ABNORMAL) URINALYSIS (11/03/2024 1:17 PM SPRAY MACHINE LOADER) COLOR (U) YELLOW 11/03/2024 1:32 PM SPRAY MACHINE LOADER [facility] TRANSPARENCY CLEAR 11/03/2024 1:32 PM SPRAY MACHINE LOADER [facility] SPECIFIC GRAVITY (U) 1.010 1.000 - 1.025 11/03/2024 1:32 PM SPRAY MACHINE LOADER [facility] U PH 5.5 5.0 - 8.0 11/03/2024 1:32 PM SPRAY MACHINE LOADER [facility] LEUKOCYTES (U) NEGATIVE NEGATIVE 11/03/2024 1:32 PM SPRAY MACHINE LOADER [facility] NITRITES NEGATIVE NEGATIVE 11/03/2024 1:32 PM [facility] PROTEIN RANDOM (U) NEGATIVE NEGATIVE 11/03/2024 1:32 PM [facility] GLUCOSE (U) NEGATIVE NEGATIVE 11/03/2024 1:32 PM SPRAY MACHINE LOADER [facility] KETONES MG/DL (U) NEGATIVE NEGATIVE 11/03/2024 1:32 PM SPRAY MACHINE LOADER [facility] UROBILINOGEN 0.2 <1.0 EU/DL 11/03/2024 1:32 PM SPRAY MACHINE LOADER [facility] BILIRUBIN (U) NEGATIVE NEGATIVE 11/03/2024 1:32 PM SPRAY MACHINE LOADER [facility] BLOOD (U) 2+(A) NEGATIVE 11/03/2024 1:32 PM SPRAY MACHINE LOADER [facility] WBC/HPF 0-5 0 - 5 /HPF 11/03/2024 1:32 PM SPRAY MACHINE LOADER [facility] RBC/HPF 20-50(A) 0 - 5 /HPF 11/03/2024 1:32 PM SPRAY MACHINE LOADER [facility] BACTERIA (U) TRACE /HPF 11/03/2024 1:32 PM SPRAY MACHINE LOADER [facility] URINE SPECIMEN OBTAINED BY CLEAN CATCH PROCEDURE / Unknown 11/03/2024 1:17 PM SPRAY MACHINE LOADER Blaise High MD URINE ORDERABLES Final Result [facility] [address] [place] [address], * (ABNORMAL) BASIC METABOLIC PANEL (11/03/2024 1:14 PM SPRAY MACHINE LOADER) SODIUM S/P/B 133(L) 136 - 145 MMOL/L 11/03/2024 1:34 PM [facility] POTASSIUM S/P/B 4.2 3.5 - 5.1 MMOL/L 11/03/2024 1:34 PM [facility] CHLORIDE S/P/B 98 98 - 107 MMOL/L 11/03/2024 1:34 PM [facility] CO2 24.6 21.0 - 32.0 MMOL/L 11/03/2024 1:34 PM [facility] GLUCOSE 93 70 - 99 MG/DL 11/03/2024 1:34 PM [facility] Comment: FASTING GLUCOSE 100 TO 125 MG/DL IS CONSISTENT WITH IMPAIRED FASTING GLUCOSE. FASTING GLUCOSE >125 MG/DL IS CONSISTENT WITH DIABETES. RANDOM GLUCOSE >200 MG/DL WITH HYPERGLYCEMIC SYMPTOMS IS CONSISTENT WITH DIABETES. PER ADA GUIDELINES BUN 15 6 - 24 MG/DL 11/03/2024 1:34 PM [facility] CREATININE S/P/B 1.17 0.70 - 1.30 MG/DL 11/03/2024 1:34 PM [facility] CALCIUM S/P/B 9.0 8.4 - 10.5 MG/DL 11/03/2024 1:34 PM SPRAY MACHINE LOADER [facility] ANION GAP 10.4 5.0 - 15.0 MMOL/L 11/03/2024 1:34 PM SPRAY MACHINE LOADER [facility] OSMOLALITY (CALC) 277 MOSM/KG 025 1:34 PM [facility] Comment:REFERENCE RANGE NOT ESTABLISHED GFR ESTIMATE 73(L) >89 ML/MIN/1. 73 M2 11/03/2024 1:34 PM SPRAY MACHINE LOADER [facility] GFR NOTES GFR REFERENCE S: 11/03/2024 1:34 PM [facility] Comment: THE ESTIMATED GFR [...] FAILURE: <15 ml/min/1.73 m2 11/03/2024 1:14 PM SPRAY MACHINE LOADER Blaise High MD LABORATORY Final Result [facility] [address] [place] [address], * (ABNORMAL) CBC W/DIFF AUTOMATED (11/03/2024 1:14 PM SPRAY MACHINE LOADER) WBC 8.42 4.00 - 10.80 x10'3/uL 11/03/2024 1:28 PM SPRAY MACHINE LOADER [facility] RBC 4.85 4.50 - 6.10 x10'6/uL 11/03/2024 1:28 PM [facility] HGB 15.1 13.0 - 18.0 G/DL 11/03/2024 1:28 PM SPRAY MACHINE LOADER [facility] HCT 44.7 37.0 - 52.0 % 11/03/2024 1:28 PM SPRAY MACHINE LOADER [facility] MCV 92.2 78.0 - 100.0 FL 11/03/2024 1:28 PM [facility] MCH 31.1(H) 27.0 - 31.0 PG 11/03/2024 1:28 PM [facility] MCHC 33.8 33.0 - 36.0 G/DL 11/03/2024 1:28 PM [facility] RDW 12.8 11.5 - 14.5 % 11/03/2024 1:28 PM [facility] PLT 240 150 - 350 x10'3/uL 11/03/2024 1:28 PM [facility] MPV 10.2 7.4 - 10.4 FL 11/03/2024 1:28 PM [facility] CBC COMMENT NORMAL REFERENCE RANGE NOT ESTABLISHED FOR THE PROPORTIONAL LEUKOCYTE DIFFERENTIAL. 11/03/2024 1:28 PM [facility] NEUTROPHILS % 60.0 % 11/03/2024 1:28 PM [facility] LYMPHOCYTES % 30.4 % 11/03/2024 1:28 PM [facility] MONOCYTES % 5.9 % 11/03/2024 1:28 PM [facility] EOSINOPHILS % 2.4 % 11/03/2024 1:28 PM [facility] BASOPHILS % 1.1 % 11/03/2024 1:28 PM [facility] IMMATURE GRANS % 0.2 % 11/03/19 1:28 PM [facility] NRBC % 0.0 % 11/03/2024 1:28 PM [facility] ABS. NEUTROPHILS 5.05 1.60 - 8.30 x10'3/uL 11/03/2024 1:28 PM [facility] ABS. LYMPHOCYTES 2.56 0.80 - 4.70 x10'3/uL 11/03/2024 1:28 PM [facility] ABS. MONOCYTES 0.50 0.00 - 1.50 x10'3/uL 11/03/2024 1:28 PM SPRAY MACHINE LOADER [facility] ABS. EOSINOPHILS 0.20 0.00 - 0.40 x10'3/uL 11/03/2024 1:28 PM SPRAY MACHINE LOADER [facility] ABS. BASOPHILS 0.09 0.00 - 0.20 x10'3/uL 11/03/2024 1:28 PM SPRAY MACHINE LOADER [facility] ABS. IMMATURE GRANULOCYTES 0.02 0.00 - 0.03 x10'3/uL 11/03/2024 1:28 PM SPRAY MACHINE LOADER [facility] ABS. NUCLEATED RBC'S 0.00 0.00 - 0.01 x10'3/uL 11/03/2024 1:28 PM SPRAY MACHINE LOADER [facility] 11/03/2024 1:14 PM SPRAY MACHINE LOADER Blaise High MD LABORATORY Final Result Performing Organization Address City/State/[facility] Co de Phone Number [facility] [address] [place] [phone], * Colonoscopy (12/11/2022 6:46 AM SPRAY MACHINE LOADER) Soren Luz MD GI PROCEDURE ORDERABLES Final Result from Last 3 Months or Most Recently Relevant to Health Maintenance Insurance [facility] Care Teams Ear Machine Operator Relationship Specialty Start Date End Date Adan Washington MD [address] [place] [id number] PCP - General FAMILY PRACTICE 03/15/20
[2025-01-19] MEDS: LACTATED RINGERS 1,000 ML 30 ML IV CONT ×2 (07:13→09:36)
--- NOTE | 2025-01-19 07:29 | WPDHPUPDATE1 ---
History and Physical Update Update Date/Time: 01/19/25 07:29 History and Physical has been reviewed, including an updated exam of the patient. There are NO changes in the patient's condition. Risks, benefits, and alternatives have been discussed and questions answered. Patient agrees to proceed with procedure.
--- NOTE | 2025-01-19 08:20 | P.PNAN_ITS ---
Anes - Initial Pre Proc Eval Procedure: Operation Date: 01/19/25 09:00 Proposed Procedures p Cystoscopy, Possible Bilateral Retrograde Pyelogram, Possible Bilateral Stent Placement - Rafael Feldman MD s Trans Urethral Resection Bladder Tumor, Possible Trans Urethral Resection Prostate - Rafael Feldman MD Date/Time: 01/19/25 08:20 Surgeon: Rafael Feldman MD Pre Op Diagnosis: bladder mass, gross hematuria, poss prostate CA Patient Data Age: 59 Gender: M Height: 1.8 m Weight: 63.8 kg Last Vital Signs Temp 97.8 F 01/19/25 07:00 Pulse 62 01/19/25 07:00 Resp 14 01/19/25 07:00 BP 111/62 01/19/25 07:00 Pulse Ox 98 01/19/25 07:00 O2 Del Method Room Air 01/19/25 07:00 Allergies Allergy/AdvReac Type Severity Reaction Status Date / Time amoxicillin (From Augmentin) Allergy Unknown Verified 01/19/25 07:16 clavulanic acid (From Allergy Unknown Verified 01/19/25 07:16 Augmentin) oxycodone (From Percocet) Allergy Unknown Verified 01/19/25 07:16 Home Medications ?Medication ?Instructions ?Recorded ?Confirmed ?Type citalopram 40 mg tablet 1 tablet PO DAILY 04/01/22 01/19/25 History cyclobenzaprine 10 mg tablet 1 tablet PO DAILY 04/01/22 01/19/25 History hydroxyzine HCl 25 mg tablet 1 tablet PO DAILY 04/01/22 01/19/25 History pantoprazole 40 mg tablet,delayed 1 tablet PO DAILY 04/01/22 01/19/25 History release aspirin 81 mg tablet,delayed 81 mg PO DAILY 01/19/25 01/19/25 History release (Adult Aspirin Regimen) Patient hx anesthesia problems: none Family hx anesthesia problems: none Results Review: All pre-operative results and documents have been reviewed as part of the pre- operative evaluation. [facility], LAT[facility] Past Medical History Medical History Forehead laceration Lip laceration Social History Social History Years smoked: 7 Smoking status: Current every day smoker Tobacco type: cigarettes Alcohol intake: current Living arrangements: with family Spiritual care concerns: No Anes - Eval Final PreProcedure Day of Procedure 01/19/25 08:20 Patient weight: normal and thin Lungs: normal air movement Airway: Mallampati scale class II and special considerations (Teeth in very poor condition, upper and lower, mostly all broken, pt denies any loose teeth. ) Neurological: alert and oriented Last oral intake: >/= 8 hours ASA classification: II Emergent: no Anesthetic plan: proceed Anesthesia type and monitoring: general LMA and standard monitoring Results Review: All pre-operative results and documents have been reviewed as part of the pre- operative evaluation. Active smoker, 1/2 ppd, pt smoked at 2 am. Informed Consent: The patient's anesthetic plan and its attendant risks and benefits were discussed with the patient/family/POA. Questions were solicited and answers provided to the satisfaction of the patient/family/POA.
[2025-01-19] MEDS: ceFAZolin 2 GM/D5W 50 ML 2 GM/50 ML BAG IVPB (08:31)
[2025-01-19] MEDS: LIDOCAINE 2% GEL UROJET 10 ML PKG MUCOUS MEM (08:34)
--- NOTE | 2025-01-19 09:11 | P.OP_ITS ---
Procedure Note - Detailed Date of Procedure 01/19/25 Pre-op Diagnosis bladder mass, gross hematuria, Post-op Diagnosis Same Procedure Performed Cystoscopy, TURBT large tumor area greater than 5 cm, unroofing of left ureteral orifice, left retrograde, left ureteral stent placement 4.8 [place] contour, complex Gonzalez catheter placement Surgeon Rafael Feldman MD Anesthesia General Description of Procedure Patient was taken to the operative suite correctly identified. Once anesthesia was obtained was placed in dorsal lithotomy position and prepped draped usual sterile fashion. Twenty-two [place] scope was inserted the bladder. The little papillary lesion right at the apical area had scraped off. Upon entering the bladder he has tumor located at the bladder neck area primarily encompassing the left side extending to the left lateral wall as well as overlying the ureteral orifice. Twenty-four [place] resectoscope sheath was then inserted. The tumor was resected. In were fully resected we had to unroof the left ureteral orifice. Separate specimen of the base was sent. At 1 point the patient jumped as we got close to the obturator nerve. Small little perforation was noted. This now will result in a Gonzalez catheter for a week with a catheter cystogram to be performed prior to its removal. Once all chips were sent the base was fulgurated. Ureteral catheter was then inserted into the unroof to left ureteral orifice and a pyelogram was performed. No filling defects noted. A wire was placed. 4.8 [place] contour stent was then placed with the proximal end in the renal pelvis distal in the bladder. 2% viscous lidocaine was inserted into the urethra a 16 [place] Gonzalez was placed. He was taken recovery stable condition. Patient will be discharged home if his urine remains fairly clear light pink in recovery room. He will call for path results in a week. Will obtain a catheter cystogram in 1 week. This completes dictation. Please send a copy of op note to my office. Estimated Blood Loss 5 Drains Yes Packing No Pathology Yes Complications No immediate complications Condition Stable Disposition PACU
--- NOTE | 2025-01-19 09:43 | SUR.PHASEI ---
0942: Simple mask removed.
[2025-01-19] MEDS: fentaNYL CITRATE INJ (*CRX) 100 MCG/2 ML VIAL 25 MCG IV PUSH (10:08)
[2025-01-19] MEDS: traMADol HCL (*CRX) 50 MG TABLET PO (10:48)
--- NOTE | 2025-01-19 11:10 | SUR.PHASEII ---
1100 - dr. rubio aware of urine color. instructed to irrigate. 1110 - reese irrigated. pt mercedes well. medium red color urine noted.
[2025-01-19] MEDS: oxyBUTYnin CHLORIDE 5 MG TABLET PO (11:30)
== END 2025-01-19 11:55 | disposition home or self-care (01) ==
PROVIDERS: PCP Family Medicine; Visit Provider Urology
PROC: (CPT 52352; principal; 2025-01-19 09:00)
PROC: 0TBB8ZZ Excision of Bladder, Via Natural or Artificial Opening Endoscopic (ICD-10-PCS; CPT 52240; 2025-01-19 09:00)
DX: C67.8 Malignant neoplasm of overlapping sites of bladder (principal); N30.90 Cystitis, unspecified without hematuria; N32.89 Other specified disorders of bladder; R31.0 Gross hematuria; N99.71 Accidental puncture and laceration of a genitourinary system organ or structure during a genitourinary system procedure; F17.210 Nicotine dependence, cigarettes, uncomplicated; Z79.82 Long term (current) use of aspirin; Z85.038 Personal history of other malignant neoplasm of large intestine; Z80.0 Family history of malignant neoplasm of digestive organs; Z82.49 Family history of ischemic heart disease and other diseases of the circulatory system
CPT/HCPCS: 52240; 74420; 88305; A9270; C1758; C1769; C2617; J0690; J1100; J2003; J2250; J2405; J2704; J3010; J7120; Q9966

== ENCOUNTER 2025-01-28 09:37 | Outpatient (CLI) | payer BC, SELFPAY ==
--- NOTE | ~2025-01-28 | XR_ITS ---
EXAMINATION: CYSTOGRAM DATE: 01/28/2025 10:20 INDICATION: Bladder cancer follow-up TECHNIQUE: Initial operator supply radiograph of the pelvis was performed. There was retrograde administration of Omnipaque 350 mixed with saline contrast into patient's existing Gonzalez catheter. Fluoroscopic andrae ges of the pelvis were obtained. A post-void image was also performed. Fluoroscopy exposure time was 0.9 minutes. Total DAP was 7.075 Gycm^2 FINDINGS: Battery Assembler Plastic image demonstrates a left intraureteral stent in expected position. Contrast opacifies the blad aurora outlining the Gonzalez catheter. There is a filling defect with smooth margins on the lateral wall o f the region of the left ureterovesicular junction likely related to reported bladder surgery. No francheska dent extraluminal contrast extravasation. There is reflux of contrast along the left internal stent w hich extends into the left renal pelvis where there is no evident hydronephrosis. IMPRESSION: No evident bladder leak. Reviewed, dictated and finalized at location A. IMPRESSION: No evident bladder leak.
--- OUTSIDE RECORDS SUMMARY | 2025-01-28 10:05 | XMS_ITS | Clinical Summary ---
Author Organization [facility] Address [address] [place] [address] Care Team Providers Care Buildings And Grounds Supervisor Name Role Phone Adan Washington MD Primary [...] Department Care Team Description 11/03/2024 12:33 PM FEED MILL MANAGER - 11/03/2024 1:55 PM FEED MILL MANAGER Emergency [facility] [address] [place] [address] Blaise High MD Male Gu Discharge Disposition: [...] on file Legal Sex Male 10:04 PM FEED MILL MANAGER Gender Identity Not on file Sexual Orientation Not on file Last Filed Vital Signs Vital Sign Reading Time Taken Comments Blood Pressure 136/73 11/03/2024 2:00 PM FEED MILL MANAGER Pulse 64 11/03/2024 1:55 PM FEED MILL MANAGER Temperature 36.7 C (98 F) 11/03/2024 12:39 PM FEED MILL MANAGER Respiratory Rate 16 11/03/2024 12:39 PM FEED MILL MANAGER Oxygen Saturation 98% 11/03/2024 2:00 PM FEED MILL MANAGER Inhaled Oxygen Concentration - - Weight 66.4 kg (146 lb 5 oz) 11/03/2024 12:39 PM FEED MILL MANAGER Height 185.4 cm (6' 1 ) 11/03/2024 12:39 PM FEED MILL MANAGER Body Mass Index 19.3 11/03/2024 12:39 PM FEED MILL MANAGER Plan of Treatment Health Maintenance Due Date [...] WO CON STAT 11/03/2024 1:2 5 PM FEED MILL MANAGER HC URINALYSIS AUTO W/MICRO STAT 11/03/2024 1:17 PM FEED MILL MANAGER BASIC METABOLIC PANEL STAT 11/03/2024 1:14 PM FEED MILL MANAGER CBC W/DIFF AUTOMATED STAT 11/03/2024 1:14 PM FEED MILL MANAGER COLONOSCOPY 12/11/2022 6:46 AM FEED MILL MANAGER from Last 3 Months or Most Recently Relevant to Health Maintenance Results * CT ABD+PEL WO CON (11/03/2024 1:25 PM FEED MILL MANAGER) Anatomical Region Laterality Modality Abdomen Computed Tomogra phy 11/03/2024 1:28 PM FEED MILL MANAGER Impressions 11/03/2024 1:37 PM FEED MILL MANAGER IMPRESSION: No acute intra-abdominal or intrapelvic process identified. No source of the patient's symptoms identified. Ordered By: BLAISE HIGH Interpreted By: Stan Sousa MD, 11/03/2024 1:28 PM Narrative 11/03/2024 1:37 PM FEED MILL MANAGER [address] [place] [address] Examination: CT of the abdomen and pelvis [...] Procedure Note Stan Sousa MD - 11/03/[address] [place] [address] Examination: CT of the abdomen and pelvis [...] Result * (ABNORMAL) URINALYSIS (11/03/2024 1:17 PM FEED MILL MANAGER) COLOR (U) YELLOW 11/03/2024 1:32 PM FEED MILL MANAGER [facility] TRANSPARENCY CLEAR 11/03/2024 1:32 PM FEED MILL MANAGER [facility] SPECIFIC GRAVITY (U) 1.010 1.000 - 1.025 11/03/2024 1:32 PM FEED MILL MANAGER [facility] U PH 5.5 5.0 - 8.0 11/03/2024 1:32 PM FEED MILL MANAGER [facility] LEUKOCYTES (U) NEGATIVE NEGATIVE 11/03/2024 1:32 PM FEED MILL MANAGER [facility] NITRITES NEGATIVE NEGATIVE 11/03/2024 1:32 PM [facility] PROTEIN RANDOM (U) NEGATIVE NEGATIVE 11/03/2024 1:32 PM [facility] GLUCOSE (U) NEGATIVE NEGATIVE 11/03/2024 1:32 PM FEED MILL MANAGER [facility] KETONES MG/DL (U) NEGATIVE NEGATIVE 11/03/2024 1:32 PM FEED MILL MANAGER [facility] UROBILINOGEN 0.2 <1.0 EU/DL 11/03/2024 1:32 PM FEED MILL MANAGER [facility] BILIRUBIN (U) NEGATIVE NEGATIVE 11/03/2024 1:32 PM FEED MILL MANAGER [facility] BLOOD (U) 2+(A) NEGATIVE 11/03/2024 1:32 PM FEED MILL MANAGER [facility] WBC/HPF 0-5 0 - 5 /HPF 11/03/2024 1:32 PM FEED MILL MANAGER [facility] RBC/HPF 20-50(A) 0 - 5 /HPF 11/03/2024 1:32 PM FEED MILL MANAGER [facility] BACTERIA (U) TRACE /HPF 11/03/2024 1:32 PM FEED MILL MANAGER [facility] URINE SPECIMEN OBTAINED BY CLEAN CATCH PROCEDURE / Unknown 11/03/2024 1:17 PM FEED MILL MANAGER Blaise High MD URINE ORDERABLES Final Result [facility] [address] [place] [address], * (ABNORMAL) BASIC METABOLIC PANEL (11/03/2024 1:14 PM FEED MILL MANAGER) SODIUM S/P/B 133(L) 136 - 145 MMOL/L [...] 8.4 - 10.5 MG/DL 11/03/2024 1:34 PM FEED MILL MANAGER [facility] ANION GAP 10.4 5.0 - 15.0 MMOL/L 11/03/2024 1:34 PM FEED MILL MANAGER [facility] OSMOLALITY (CALC) 277 MOSM/KG 025 1:34 PM [facility] Comment:REFERENCE RANGE NOT ESTABLISHED GFR ESTIMATE 73(L) >89 ML/MIN/1. 73 M2 11/03/2024 1:34 PM FEED MILL MANAGER [facility] GFR NOTES GFR REFERENCE S: 11/03/2024 [...] FAILURE: <15 ml/min/1.73 m2 11/03/2024 1:14 PM FEED MILL MANAGER Blaise High MD LABORATORY Final Result [facility] [address] [place] [address], * (ABNORMAL) CBC W/DIFF AUTOMATED (11/03/2024 1:14 PM FEED MILL MANAGER) WBC 8.42 4.00 - 10.80 x10'3/uL 11/03/2024 1:28 PM FEED MILL MANAGER [facility] RBC 4.85 4.50 - 6.10 x10'6/uL 11/03/2024 1:28 PM [facility] HGB 15.1 13.0 - 18.0 G/DL 11/03/2024 1:28 PM FEED MILL MANAGER [facility] HCT 44.7 37.0 - 52.0 % 11/03/2024 1:28 PM FEED MILL MANAGER [facility] MCV 92.2 78.0 - 100.0 FL [...] 0.00 - 1.50 x10'3/uL 11/03/2024 1:28 PM FEED MILL MANAGER [facility] ABS. EOSINOPHILS 0.20 0.00 - 0.40 x10'3/uL 11/03/2024 1:28 PM FEED MILL MANAGER [facility] ABS. BASOPHILS 0.09 0.00 - 0.20 x10'3/uL 11/03/2024 1:28 PM FEED MILL MANAGER [facility] ABS. IMMATURE GRANULOCYTES 0.02 0.00 - 0.03 x10'3/uL 11/03/2024 1:28 PM FEED MILL MANAGER [facility] ABS. NUCLEATED RBC'S 0.00 0.00 - 0.01 x10'3/uL 11/03/2024 1:28 PM FEED MILL MANAGER [facility] 11/03/2024 1:14 PM FEED MILL MANAGER Blaise High MD LABORATORY Final Result Performing Organization Address City/State/[facility] Co de Phone Number [facility] [address] [place] [phone], * Colonoscopy (12/11/2022 6:46 AM FEED MILL MANAGER) Soren Luz MD GI PROCEDURE ORDERABLES Final Result from Last 3 Months or Most Recently Relevant to Health Maintenance Insurance [facility] Care Teams Buildings And Grounds Supervisor Relationship Specialty Start Date End Date Adan Washington MD [address] [place] [address] PCP - General FAMILY PRACTICE 03/15/20
--- OUTSIDE RECORDS SUMMARY | 2025-01-28 10:05 | XMS_ITS | Encounter Summary ---
Author Organization [facility] Address [address] [place] [id number] Care Team Providers Care Compounding Pharmacy Technician Name Role Phone Adan Washington MD Primary Care Provider Encounter Details Date Type Department Care Team (Late st Contact Info) Description 04/04/2019 Abstract [facility] CONVERSION [address] [place] [id number] , Generic Conversion, Social History Tobacco Use Types Packs/Day Years Used Date Smoking Tobacco: Never Assessed Sex and Gender Information Value Date Recorded Sex Assigned at Not on file Legal Sex Male 10:04 PM MELTER ASSISTANT Gender Identity Not on file Sexual Orientation Not on file documented as of this encounter Plan of Treatment Not on file documented as of this encounter Visit Diagnoses Not on filedocumented in this encounter Additional Health Concerns Infection Onset Date Last Indicated Resolved Time COVID-19 Rule Out 03/15/2020 03/15/2020 03/22/2020 8:47 AM CDT COVID-19 Rule Out 01/05/2023 01/05/2023 01/05/2023 1:23 PM MELTER ASSISTANT documented as of this encounter Care Teams Compounding Pharmacy Technician Relationship Specialty Start Date End Date Adan Washington MD [address] [place] [id number] PCP - General FAMILY PRACTICE 03/15/20 documented as of this encounter
== END 2025-01-28 09:38 | disposition home or self-care (01) ==
LOC: ANHIMG 09:38
PROVIDERS: PCP Family Medicine; Visit Provider Urology
DX: C67.9 Malignant neoplasm of bladder, unspecified (principal); Z98.890 Other specified postprocedural states
CPT/HCPCS: 51600; 74430; Q9967